=== PATIENT | female | born 1950 | race Caucasian/White ===

== ENCOUNTER 2019-11-21 14:59 | Inpatient (IN) ==
[2019-11-21 16:11] LABS: Basophils % 0.2 % (0.0-0.8); Hematocrit 40.7 VOL% (35.7-47.0); Hemoglobin 13.6 GM/DL (12.0-16.0); Immature Granulocytes % 0.5 %; Immature Granulocytes Absolute 0.03 #; Lymphocytes % 16.9 % (21.3-54.2); Mean Corpuscular HGB Conc 33.4 GM/DL (32-36); Mean Corpuscular Volume 88.5 FL (87-102); Mean Platelet Volume 10.2 FL (9.6-12.0); Monocytes % 3.4 % (1.7-12.7); Platelet Count 169 T/CUMM (130-400); Red Cell Distribution Width 12.4 % (9.3-17.3); White Blood Count 5.6 T/CUMM (4-12)
[2019-11-21 16:26] LABS: Albumin 3.4 G/DL (3.4-5.0); Bilirubin,Total 0.7 MG/DL (0.2-1.0); Calcium 8.7 MG/DL (8.5-10.1); Total Protein 7.2 G/DL (6.4-8.3)
[2019-11-21] MEDS ORDERED: methylPREDNISolone SOD SUC 125 MG/2 ML VIAL IV STA (18:20)
[2019-11-21] MEDS ORDERED: SODIUM CHLORIDE 0.9% 1,000 ML IV STA (18:20)
[2019-11-21] MEDS ORDERED: AZITHROMYCIN INJ 500 MG in SODIUM CHLORIDE 0.9% 250 ML IV STA (18:20)
[2019-11-21 18:59] LABS: Ferritin 580.1 ng/ml (8-252)
[2019-11-21] MEDS ORDERED: DEXTROSE 50% 25 GM/50 ML VIAL IV PRN (20:11)
[2019-11-21] MEDS ORDERED: GLUCAGON 1 MG VIAL IM PRN (20:11)
[2019-11-21] MEDS ORDERED: ONDANSETRON 4 MG/2 ML VIAL IV PRN (20:11)
[2019-11-22] MEDS: INSULIN REGULAR 100 UNIT/ML SUBCUT SCH ×5 (01:18→20:08)
[2019-11-22] MEDS: ALBUTEROL INHALER 18 GM INH SCH ×4 (01:21→18:35)
[2019-11-22] MEDS: DEXAMETHASONE 10 MG/1 ML VIAL IV SCH (08:30)
[2019-11-22] MEDS: ZINC SULFATE 220 MG CAPSULE PO SCH (08:31)
[2019-11-22] MEDS: LETROZOLE 2.5 MG TABLET PO SCH (08:31)
[2019-11-22] MEDS: ASCORBIC ACID 500 MG TABLET PO SCH (08:31)
[2019-11-22] MEDS: ENOXAPARIN 40 MG/0.4 ML SYRINGE SUBCUT SCH (08:31)
[2019-11-22] MEDS: PANTOPRAZOLE 40 MG TABLET PO SCH (08:32)
[2019-11-22 09:08] LABS: Ferritin 605.4 ng/ml (8-252)
[2019-11-22 10:39] LABS: Hematocrit 40.1 VOL% (35.7-47.0); Hemoglobin 13.5 GM/DL (12.0-16.0); Immature Granulocytes % 0.3 %; Immature Granulocytes Absolute 0.01 #; Lymphocytes # 0.6 10*3/uL (1.4-4.0); Lymphocytes % 15.2 % (21.3-54.2); Mean Corpuscular HGB Conc 33.7 GM/DL (32-36); Mean Corpuscular Volume 86.8 FL (87-102); Mean Platelet Volume 10.6 FL (9.6-12.0); Monocytes % 1.7 % (1.7-12.7); Neutrophils % 82.8 % (38.7-73.9); Platelet Count 170 T/CUMM (130-400); Red Blood Count 4.62 MC/CUMM (3.8-5.5); Red Cell Distribution Width 12.5 % (9.3-17.3); White Blood Count 3.6 T/CUMM (4-12)
[2019-11-22 10:49] LABS: Osmolality,Calculated 277.7 MOS/KG (273-304)
[2019-11-22 10:58] LABS: Lymphocytes 8 % (20-55); Platelet Estimate Adequate; Segmented Neutrophils 90 % (50-85); Total Cells Counted 100
[2019-11-22 10:59] LABS: Hypochromasia 1+; Microcytosis Slight
[2019-11-22] MEDS: ACETAMINOPHEN 325 MG TABLET PO PRN (12:15)
[2019-11-22] MEDS ORDERED: SODIUM CHLORIDE 0.9% 500 ML IV ONE (13:03)
[2019-11-22] MEDS: SODIUM CHLORIDE 0.9% 1,000 ML IV SCH (14:26)
[2019-11-22] MEDS: LORazepam 1 MG TABLET PO PRN (20:09)
[2019-11-23] MEDS: SODIUM CHLORIDE 0.9% 1,000 ML IV SCH ×3 (00:33→20:16)
[2019-11-23] MEDS: ALBUTEROL INHALER 18 GM INH SCH ×4 (00:34→19:50)
[2019-11-23 08:48] LABS: Basophils % 0.1 % (0.0-0.8); Hematocrit 39.5 VOL% (35.7-47.0); Hemoglobin 13.2 GM/DL (12.0-16.0); Immature Granulocytes % 0.8 %; Immature Granulocytes Absolute 0.08 #; Lymphocytes % 9.3 % (21.3-54.2); Mean Corpuscular HGB Conc 33.4 GM/DL (32-36); Mean Corpuscular Volume 87.6 FL (87-102); Mean Platelet Volume 10.3 FL (9.6-12.0); Monocytes % 2.5 % (1.7-12.7); Neutrophils % 87.3 % (38.7-73.9); Platelet Count 204 T/CUMM (130-400); Red Blood Count 4.51 MC/CUMM (3.8-5.5); Red Cell Distribution Width 12.5 % (9.3-17.3); White Blood Count 10.3 T/CUMM (4-12)
[2019-11-23] MEDS: INSULIN REGULAR 100 UNIT/ML SUBCUT SCH ×4 (08:58→20:01)
[2019-11-23] MEDS: PANTOPRAZOLE 40 MG TABLET PO SCH (08:59)
[2019-11-23] MEDS: ASCORBIC ACID 500 MG TABLET PO SCH (08:59)
[2019-11-23] MEDS: ENOXAPARIN 40 MG/0.4 ML SYRINGE SUBCUT SCH (08:59)
[2019-11-23] MEDS: LETROZOLE 2.5 MG TABLET PO SCH (08:59)
[2019-11-23] MEDS: DEXAMETHASONE 10 MG/1 ML VIAL IV SCH (09:02)
[2019-11-23 09:14] LABS: Calcium 8.5 MG/DL (8.5-10.1); Osmolality,Calculated 282.1 MOS/KG (273-304)
[2019-11-23] MEDS: ACETAMINOPHEN 325 MG TABLET PO PRN (10:51)
[2019-11-23] MEDS ORDERED: POTASSIUM CHLORIDE 20 MEQ TABLET PO ONE (12:13)
[2019-11-23] MEDS ORDERED: SODIUM CHLORIDE 0.9% 1,000 ML IV PRN (12:17)
[2019-11-23 12:45] LABS: ABG HCO3 25.2 MMOL/L (20-26); ABG Oxygen Saturation 92.1 % (95-100); ABG PCO2 33.2 MM HG (35-48); ABG PH 7.468 (7.35-7.45); ABG PO2 60.7 MM HG (80-95); ABG TCO2 20.9 MMOL/L (23-27)
[2019-11-23] MEDS: AZITHROMYCIN INJ 500 MG in SODIUM CHLORIDE 0.9% 250 ML IV SCH (14:11)
[2019-11-23] MEDS: cefTRIAXone 1,000 MG in SYRINGE 1 EACH IV SCH (14:11)
[2019-11-23 16:27] LABS: Bilirubin,Urine Negative (Negative); Blood, Urine Negative (Negative); Glucose,Urine (UA) 50 mg/dL (Negative); Ketones,Urine Negative (Negative); Mucus,Urine Occasional /LPF (Occasional); Nitrite,Urine Negative (Negative); Protein,Urine Negative; RBC,Urine 1 /HPF (0-4); Urine Appearance CLEAR (Clear); Urine Color Straw (Yellow); Urine Specific Gravity 1.006 (1.001-1.035); Urine Urobilinogen < 2.0 EU/DL (0.2-1.0); WBC,Urine 1 /HPF (0-6)
[2019-11-23] MEDS ORDERED: REMDESIVIR 200 MG in SODIUM CHLORIDE 0.9% 210 ML IV ONE (17:00)
[2019-11-23] MEDS ORDERED: LORazepam 2 MG/1 ML VIAL IV ONE (17:30)
[2019-11-23] MEDS: LORazepam 1 MG TABLET PO PRN (20:15)
[2019-11-24] MEDS: ALBUTEROL INHALER 18 GM INH SCH ×4 (00:22→19:52)
[2019-11-24] MEDS: SODIUM CHLORIDE 0.9% 1,000 ML IV SCH (06:08)
[2019-11-24 06:14] LABS: Hematocrit 37.1 VOL% (35.7-47.0); Hemoglobin 12.5 GM/DL (12.0-16.0); Immature Granulocytes % 0.5 %; Immature Granulocytes Absolute 0.05 #; Lymphocytes # 0.7 10*3/uL (1.4-4.0); Mean Corpuscular HGB Conc 33.7 GM/DL (32-36); Mean Corpuscular Volume 87.3 FL (87-102); Mean Platelet Volume 10.1 FL (9.6-12.0); Monocytes % 3.4 % (1.7-12.7); Neutrophils % 88.1 % (38.7-73.9); Platelet Count 229 T/CUMM (130-400); Red Blood Count 4.25 MC/CUMM (3.8-5.5); Red Cell Distribution Width 12.8 % (9.3-17.3); White Blood Count 9.3 T/CUMM (4-12)
[2019-11-24 06:31] LABS: Calcium 8.2 MG/DL (8.5-10.1); Osmolality,Calculated 285.8 MOS/KG (273-304)
[2019-11-24] MEDS: PANTOPRAZOLE 40 MG TABLET PO SCH (08:57)
[2019-11-24] MEDS: ASCORBIC ACID 500 MG TABLET PO SCH (08:57)
[2019-11-24] MEDS: DEXAMETHASONE 10 MG/1 ML VIAL IV SCH (08:57)
[2019-11-24] MEDS: ENOXAPARIN 40 MG/0.4 ML SYRINGE SUBCUT SCH (08:57)
[2019-11-24] MEDS: LETROZOLE 2.5 MG TABLET PO SCH (08:57)
[2019-11-24] MEDS: ZINC SULFATE 220 MG CAPSULE PO SCH (08:57)
[2019-11-24] MEDS: INSULIN REGULAR 100 UNIT/ML SUBCUT SCH ×4 (08:58→20:03)
[2019-11-24] MEDS: ALPRAZolam 0.5 MG TABLET PO PRN ×2 (10:11→22:21)
[2019-11-24] MEDS: cefTRIAXone 1,000 MG in SYRINGE 1 EACH IV SCH (13:20)
[2019-11-24] MEDS: AZITHROMYCIN INJ 500 MG in SODIUM CHLORIDE 0.9% 250 ML IV SCH (13:21)
[2019-11-24] MEDS: BENZONATATE 100 MG CAPSULE PO PRN (16:52)
[2019-11-24] MEDS: REMDESIVIR 100 MG in SODIUM CHLORIDE 0.9% 230 ML IV SCH (16:52)
[2019-11-25] MEDS: ALBUTEROL INHALER 18 GM INH SCH ×4 (01:15→19:43)
[2019-11-25 06:47] LABS: Basophils % 0.2 % (0.0-0.8); Hematocrit 36.2 VOL% (35.7-47.0); Hemoglobin 12.3 GM/DL (12.0-16.0); Immature Granulocytes % 0.6 %; Immature Granulocytes Absolute 0.04 #; Lymphocytes # 0.9 10*3/uL (1.4-4.0); Lymphocytes % 14.1 % (21.3-54.2); Mean Corpuscular Volume 86.8 FL (87-102); Mean Platelet Volume 10.1 FL (9.6-12.0); Monocytes % 5.6 % (1.7-12.7); Neutrophils % 79.5 % (38.7-73.9); Platelet Count 244 T/CUMM (130-400); Red Blood Count 4.17 MC/CUMM (3.8-5.5); Red Cell Distribution Width 12.6 % (9.3-17.3); White Blood Count 6.2 T/CUMM (4-12)
[2019-11-25] MEDS: INSULIN REGULAR 100 UNIT/ML SUBCUT SCH ×4 (07:19→20:23)
[2019-11-25 07:29] LABS: Hypochromasia 1+; Microcytosis 1+; Platelet Estimate Adequate
[2019-11-25 09:02] LABS: Calcium 8.3 MG/DL (8.5-10.1)
[2019-11-25] MEDS: PANTOPRAZOLE 40 MG TABLET PO SCH (09:50)
[2019-11-25] MEDS: CITALOPRAM 20 MG TABLET PO SCH (09:50)
[2019-11-25] MEDS: ENOXAPARIN 40 MG/0.4 ML SYRINGE SUBCUT SCH (09:50)
[2019-11-25] MEDS: ALPRAZolam 0.5 MG TABLET PO PRN (09:50)
[2019-11-25] MEDS: DEXAMETHASONE 10 MG/1 ML VIAL IV SCH (09:50)
[2019-11-25] MEDS: LETROZOLE 2.5 MG TABLET PO SCH (09:50)
[2019-11-25] MEDS: ASCORBIC ACID 500 MG TABLET PO SCH (09:50)
[2019-11-25] MEDS: cefTRIAXone 1,000 MG in SYRINGE 1 EACH IV SCH (12:05)
[2019-11-25] MEDS: AZITHROMYCIN INJ 500 MG in SODIUM CHLORIDE 0.9% 250 ML IV SCH (12:08)
[2019-11-25] MEDS ORDERED: FUROSEMIDE 20 MG/2 ML VIAL IV ONE (13:03)
[2019-11-25] MEDS: REMDESIVIR 100 MG in SODIUM CHLORIDE 0.9% 230 ML IV SCH (17:07)
[2019-11-26] MEDS: ALBUTEROL INHALER 18 GM INH SCH ×4 (01:09→19:53)
[2019-11-26 05:59] LABS: Basophils % 0.2 % (0.0-0.8); Hematocrit 40.4 VOL% (35.7-47.0); Hemoglobin 13.6 GM/DL (12.0-16.0); Immature Granulocytes % 1.1 %; Immature Granulocytes Absolute 0.06 #; Lymphocytes # 0.7 10*3/uL (1.4-4.0); Lymphocytes % 13.1 % (21.3-54.2); Mean Corpuscular HGB Conc 33.7 GM/DL (32-36); Mean Corpuscular Volume 86.7 FL (87-102); Mean Platelet Volume 10.1 FL (9.6-12.0); Neutrophils % 80.6 % (38.7-73.9); Platelet Count 305 T/CUMM (130-400); Red Blood Count 4.66 MC/CUMM (3.8-5.5); Red Cell Distribution Width 12.2 % (9.3-17.3); White Blood Count 5.6 T/CUMM (4-12)
[2019-11-26 06:06] LABS: Calcium 8.6 MG/DL (8.5-10.1); Osmolality,Calculated 276.7 MOS/KG (273-304)
[2019-11-26 07:09] LABS: Anisocytosis 1+; Band Neutrophils 4 % (0-10); Lymphocytes 11 % (20-55); Metamyelocytes 1 %; Platelet Estimate Normal; Segmented Neutrophils 80 % (50-85); Total Cells Counted 100
[2019-11-26] MEDS: INSULIN REGULAR 100 UNIT/ML SUBCUT SCH ×4 (08:01→22:13)
[2019-11-26] MEDS: DEXAMETHASONE 10 MG/1 ML VIAL IV SCH (09:31)
[2019-11-26] MEDS: ZINC SULFATE 220 MG CAPSULE PO SCH (09:33)
[2019-11-26] MEDS: PANTOPRAZOLE 40 MG TABLET PO SCH (09:33)
[2019-11-26] MEDS: LETROZOLE 2.5 MG TABLET PO SCH (09:33)
[2019-11-26] MEDS: ASCORBIC ACID 500 MG TABLET PO SCH (09:33)
[2019-11-26] MEDS: ENOXAPARIN 40 MG/0.4 ML SYRINGE SUBCUT SCH (09:33)
[2019-11-26] MEDS: CITALOPRAM 20 MG TABLET PO SCH (09:34)
[2019-11-26] MEDS: cefTRIAXone 1,000 MG in SYRINGE 1 EACH IV SCH (13:29)
[2019-11-26] MEDS: AZITHROMYCIN INJ 500 MG in SODIUM CHLORIDE 0.9% 250 ML IV SCH (13:50)
[2019-11-26] MEDS: REMDESIVIR 100 MG in SODIUM CHLORIDE 0.9% 230 ML IV SCH (17:17)
[2019-11-27] MEDS: ALBUTEROL INHALER 18 GM INH SCH ×4 (00:43→18:51)
[2019-11-27] MEDS: ENOXAPARIN 40 MG/0.4 ML SYRINGE SUBCUT SCH (08:36)
[2019-11-27] MEDS: INSULIN REGULAR 100 UNIT/ML SUBCUT SCH ×4 (08:36→21:25)
[2019-11-27] MEDS: LETROZOLE 2.5 MG TABLET PO SCH (08:37)
[2019-11-27] MEDS: CITALOPRAM 20 MG TABLET PO SCH (08:37)
[2019-11-27] MEDS: DEXAMETHASONE 10 MG/1 ML VIAL IV SCH (08:37)
[2019-11-27] MEDS: ASCORBIC ACID 500 MG TABLET PO SCH (08:37)
[2019-11-27] MEDS: PANTOPRAZOLE 40 MG TABLET PO SCH (08:37)
[2019-11-27] MEDS: BENZONATATE 100 MG CAPSULE PO PRN (10:29)
[2019-11-27] MEDS: cefTRIAXone 1,000 MG in SYRINGE 1 EACH IV SCH (13:42)
[2019-11-27] MEDS: AZITHROMYCIN INJ 500 MG in SODIUM CHLORIDE 0.9% 250 ML IV SCH (13:43)
[2019-11-27] MEDS: REMDESIVIR 100 MG in SODIUM CHLORIDE 0.9% 230 ML IV SCH (17:16)
[2019-11-28] MEDS: ALBUTEROL INHALER 18 GM INH SCH ×4 (01:38→19:25)
[2019-11-28 05:55] LABS: Basophils % 0.1 % (0.0-0.8); Hematocrit 40.8 VOL% (35.7-47.0); Hemoglobin 13.6 GM/DL (12.0-16.0); Immature Granulocytes % 0.9 %; Immature Granulocytes Absolute 0.06 #; Lymphocytes # 0.7 10*3/uL (1.4-4.0); Lymphocytes % 10.1 % (21.3-54.2); Mean Corpuscular HGB Conc 33.3 GM/DL (32-36); Mean Corpuscular Volume 86.8 FL (87-102); Mean Platelet Volume 9.9 FL (9.6-12.0); Monocytes % 2.8 % (1.7-12.7); Neutrophils % 86.1 % (38.7-73.9); Platelet Count 333 T/CUMM (130-400); Red Cell Distribution Width 11.9 % (9.3-17.3); White Blood Count 6.8 T/CUMM (4-12)
[2019-11-28 06:38] LABS: Calcium 8.5 MG/DL (8.5-10.1); Ferritin 419.6 ng/ml (8-252); Osmolality,Calculated 277.5 MOS/KG (273-304)
[2019-11-28 08:47] LABS: Albumin 2.4 G/DL (3.4-5.0); Bilirubin,Total 0.7 MG/DL (0.2-1.0); Calcium 8.8 MG/DL (8.5-10.1); Osmolality,Calculated 275.5 MOS/KG (273-304); Total Protein 6.9 G/DL (6.4-8.3)
[2019-11-28] MEDS: INSULIN REGULAR 100 UNIT/ML SUBCUT SCH ×4 (08:51→20:43)
[2019-11-28] MEDS: ASCORBIC ACID 500 MG TABLET PO SCH (08:52)
[2019-11-28] MEDS: ENOXAPARIN 40 MG/0.4 ML SYRINGE SUBCUT SCH ×2 (08:52→20:44)
[2019-11-28] MEDS: PANTOPRAZOLE 40 MG TABLET PO SCH (08:52)
[2019-11-28] MEDS: BENZONATATE 100 MG CAPSULE PO PRN ×2 (08:52→20:44)
[2019-11-28] MEDS: ALPRAZolam 0.5 MG TABLET PO PRN (08:52)
[2019-11-28] MEDS: DEXAMETHASONE 10 MG/1 ML VIAL IV SCH (08:52)
[2019-11-28] MEDS: CITALOPRAM 20 MG TABLET PO SCH (08:53)
[2019-11-28 10:29] LABS: Pt O2 Delivery Device Other
[2019-11-28 10:31] LABS: ABG HCO3 27.7 MMOL/L (20-26); ABG Oxygen Saturation 89.3 % (95-100); ABG PCO2 35.7 MM HG (35-48); ABG PH 7.488 (7.35-7.45); ABG PO2 55.8 MM HG (80-95); ABG TCO2 22.6 MMOL/L (23-27)
[2019-11-28] MEDS: LETROZOLE 2.5 MG TABLET PO SCH (12:16)
[2019-11-28] MEDS: AZITHROMYCIN INJ 500 MG in SODIUM CHLORIDE 0.9% 250 ML IV SCH (12:42)
[2019-11-28] MEDS: cefTRIAXone 1,000 MG in SYRINGE 1 EACH IV SCH (12:42)
[2019-11-28] MEDS ORDERED: FUROSEMIDE 40 MG/4 ML VIAL IV ONE (14:47)
[2019-11-28] MEDS ORDERED: ALUMINUM/MAGNES/SIMETH MAX STR 30 ML UDCUP PO PRN (17:25)
[2019-11-28] MEDS ORDERED: BISACODYL 5 MG TABLET PO PRN (17:25)
[2019-11-28] MEDS ORDERED: SIMETHICONE CHEW 125 MG TABLET PO PRN (17:25)
[2019-11-28] MEDS ORDERED: hydrALAZINE 20 MG/1 ML VIAL IV PRN (17:25)
[2019-11-28] MEDS ORDERED: DOCUSATE SODIUM 100 MG CAPSULE PO PRN (17:25)
[2019-11-28] MEDS ORDERED: LACTULOSE 20 GM/30 ML UDCUP PO PRN (17:25)
[2019-11-28] MEDS ORDERED: diphenhydrAMINE CAP 25 MG CAPSULE PO PRN (17:25)
[2019-11-28] MEDS ORDERED: DEXTROSE 50% 25 GM/50 ML VIAL IV PRN (17:25)
[2019-11-28] MEDS ORDERED: ZOLPIDEM 5 MG TABLET PO SCH (21:00)
[2019-11-28] MEDS ORDERED: ZALEPLON 5 MG CAPSULE PO SCH (21:00)
[2019-11-29] MEDS: ALBUTEROL INHALER 18 GM INH SCH ×4 (00:44→18:40)
[2019-11-29 06:00] LABS: Basophils % 0.3 % (0.0-0.8); Hematocrit 40.6 VOL% (35.7-47.0); Hemoglobin 13.7 GM/DL (12.0-16.0); Immature Granulocytes % 0.7 %; Immature Granulocytes Absolute 0.05 #; Lymphocytes # 0.6 10*3/uL (1.4-4.0); Lymphocytes % 8.4 % (21.3-54.2); Mean Corpuscular HGB Conc 33.7 GM/DL (32-36); Mean Corpuscular Volume 84.2 FL (87-102); Mean Platelet Volume 10.3 FL (9.6-12.0); Monocytes % 3.2 % (1.7-12.7); Neutrophils % 87.4 % (38.7-73.9); Platelet Count 333 T/CUMM (130-400); Red Blood Count 4.82 MC/CUMM (3.8-5.5); White Blood Count 7.1 T/CUMM (4-12)
[2019-11-29 06:24] LABS: Albumin 2.3 G/DL (3.4-5.0); Bilirubin,Total 0.9 MG/DL (0.2-1.0); Calcium 8.8 MG/DL (8.5-10.1); Calcium 8.9 MG/DL (8.5-10.1); Ferritin 425.1 ng/ml (8-252); Osmolality,Calculated 275.8 MOS/KG (273-304); Total Protein 6.8 G/DL (6.4-8.3)
[2019-11-29] MEDS: PANTOPRAZOLE 40 MG TABLET PO SCH (08:36)
[2019-11-29] MEDS: DEXAMETHASONE 4 MG/1 ML VIAL IV SCH (08:36)
[2019-11-29] MEDS: CITALOPRAM 20 MG TABLET PO SCH (08:36)
[2019-11-29] MEDS: BENZONATATE 100 MG CAPSULE PO PRN (08:36)
[2019-11-29] MEDS: LETROZOLE 2.5 MG TABLET PO SCH (08:36)
[2019-11-29] MEDS: CHOLECALCIFEROL 1,000 UNIT TABLET PO SCH (08:36)
[2019-11-29] MEDS: ASCORBIC ACID 500 MG TABLET PO SCH (08:36)
[2019-11-29] MEDS: ENOXAPARIN 40 MG/0.4 ML SYRINGE SUBCUT SCH ×2 (08:37→20:49)
[2019-11-29] MEDS: INSULIN REGULAR 100 UNIT/ML SUBCUT SCH ×4 (08:37→20:16)
[2019-11-29] MEDS ORDERED: MELATONIN 3 MG TABLET PO PRN (09:47)
[2019-11-29] MEDS: REMDESIVIR 100 MG in SODIUM CHLORIDE 0.9% 230 ML IV SCH (13:17)
[2019-11-30] MEDS: ALBUTEROL INHALER 18 GM INH SCH ×4 (00:20→18:00)
[2019-11-30 05:58] LABS: Eosinophils # 0.1 10*3/uL (0.0-0.87); Eosinophils % 0.5 % (0.00-10.9); Hematocrit 37.8 VOL% (35.7-47.0); Hemoglobin 12.7 GM/DL (12.0-16.0); Immature Granulocytes % 0.9 %; Immature Granulocytes Absolute 0.08 #; Lymphocytes # 0.8 10*3/uL (1.4-4.0); Lymphocytes % 9.2 % (21.3-54.2); Mean Corpuscular HGB Conc 33.6 GM/DL (32-36); Mean Corpuscular Volume 85.9 FL (87-102); Mean Platelet Volume 9.8 FL (9.6-12.0); Neutrophils % 86.4 % (38.7-73.9); Platelet Count 333 T/CUMM (130-400); Red Cell Distribution Width 11.9 % (9.3-17.3); White Blood Count 9.1 T/CUMM (4-12)
[2019-11-30 06:18] LABS: Albumin 2.1 G/DL (3.4-5.0); Bilirubin,Total 1.2 MG/DL (0.2-1.0); Calcium 8.5 MG/DL (8.5-10.1); Osmolality,Calculated 272.8 MOS/KG (273-304); Total Protein 6.2 G/DL (6.4-8.3)
[2019-11-30 06:19] LABS: Calcium 8.5 MG/DL (8.5-10.1); Ferritin 398.5 ng/ml (8-252)
[2019-11-30] MEDS: INSULIN REGULAR 100 UNIT/ML SUBCUT SCH ×4 (07:29→21:02)
[2019-11-30] MEDS: DEXAMETHASONE 4 MG/1 ML VIAL IV SCH (09:18)
[2019-11-30] MEDS: CITALOPRAM 20 MG TABLET PO SCH (09:18)
[2019-11-30] MEDS: LETROZOLE 2.5 MG TABLET PO SCH (09:18)
[2019-11-30] MEDS: ENOXAPARIN 40 MG/0.4 ML SYRINGE SUBCUT SCH ×2 (09:18→21:02)
[2019-11-30] MEDS: ASCORBIC ACID 500 MG TABLET PO SCH (09:19)
[2019-11-30] MEDS: PANTOPRAZOLE 40 MG TABLET PO SCH (09:19)
[2019-11-30] MEDS: CHOLECALCIFEROL 1,000 UNIT TABLET PO SCH (09:19)
[2019-11-30] MEDS: REMDESIVIR 100 MG in SODIUM CHLORIDE 0.9% 230 ML IV SCH (10:27)
[2019-11-30] MEDS: BENZONATATE 100 MG CAPSULE PO PRN (11:52)
[2019-12-01] MEDS: ALBUTEROL INHALER 18 GM INH SCH ×4 (01:40→20:27)
[2019-12-01 05:56] LABS: Basophils % 0.1 % (0.0-0.8); Eosinophils # 0.1 10*3/uL (0.0-0.87); Eosinophils % 0.6 % (0.00-10.9); Hematocrit 37.8 VOL% (35.7-47.0); Hemoglobin 12.6 GM/DL (12.0-16.0); Immature Granulocytes % 0.5 %; Immature Granulocytes Absolute 0.05 #; Lymphocytes # 0.5 10*3/uL (1.4-4.0); Lymphocytes % 4.7 % (21.3-54.2); Mean Corpuscular HGB Conc 33.3 GM/DL (32-36); Mean Corpuscular Volume 85.7 FL (87-102); Mean Platelet Volume 10.4 FL (9.6-12.0); Monocytes % 1.9 % (1.7-12.7); Neutrophils % 92.2 % (38.7-73.9); Platelet Count 294 T/CUMM (130-400); Red Blood Count 4.41 MC/CUMM (3.8-5.5); White Blood Count 10.2 T/CUMM (4-12)
[2019-12-01 06:17] LABS: Lymphocytes 4 % (20-55); Platelet Estimate Adequate; Segmented Neutrophils 96 % (50-85); Total Cells Counted 100
[2019-12-01 06:23] LABS: Calcium 8.6 MG/DL (8.5-10.1); Ferritin 442.2 ng/ml (8-252)
[2019-12-01] MEDS: ACETAMINOPHEN 325 MG TABLET PO PRN (06:57)
[2019-12-01 07:24] LABS: Alanine Aminotransferase 11 U/L (13-56); Alkaline Phosphatase 66 U/L (45-117); Aspartate Amino Transferase 15 U/L (0-37); Blood Urea Nitrogen 13 MG/DL (7-18); Calcium 8.6 MG/DL (8.5-10.1); Estimated Glom Filtration Rate 92 ML/MIN; Glucose 142 MG/DL (74-106); Total Protein 6.3 G/DL (6.4-8.3)
[2019-12-01] MEDS: ENOXAPARIN 40 MG/0.4 ML SYRINGE SUBCUT SCH ×2 (08:07→20:27)
[2019-12-01] MEDS: DEXAMETHASONE 4 MG/1 ML VIAL IV SCH ×2 (08:07→09:49)
[2019-12-01] MEDS: INSULIN REGULAR 100 UNIT/ML SUBCUT SCH ×4 (08:07→20:36)
[2019-12-01] MEDS: CITALOPRAM 20 MG TABLET PO SCH (08:07)
[2019-12-01] MEDS: LETROZOLE 2.5 MG TABLET PO SCH (08:07)
[2019-12-01 08:08] VITALS: BP 98/40
[2019-12-01] MEDS: CHOLECALCIFEROL 1,000 UNIT TABLET PO SCH (08:08)
[2019-12-01] MEDS: ASCORBIC ACID 500 MG TABLET PO SCH (08:08)
[2019-12-01] MEDS: PANTOPRAZOLE 40 MG TABLET PO SCH (08:08)
[2019-12-01 09:19] LABS: ABG Base Excess 3.1 MMOL/L (-2.5-2.5); ABG HCO3 27.1 MMOL/L (20-26); ABG PCO2 39.5 MM HG (35-48); ABG PH 7.447 (7.35-7.45); ABG PO2 68.2 MM HG (80-95); ABG TCO2 23.7 MMOL/L (23-27)
[2019-12-01] MEDS: REMDESIVIR 100 MG in SODIUM CHLORIDE 0.9% 230 ML IV SCH (09:49)
[2019-12-01] MEDS: LEVOFLOXACIN INJ 750 MG in PREMIX 1 EACH IV SCH (13:53)
[2019-12-01] MEDS: cefTRIAXone 1,000 MG in SYRINGE 1 EACH IV SCH (15:08)
[2019-12-02] MEDS: ALBUTEROL INHALER 18 GM INH SCH ×4 (01:10→22:20)
[2019-12-02 04:02] LABS: Basophils % 0.2 % (0.0-0.8); Hematocrit 36.7 VOL% (35.7-47.0); Hemoglobin 12.5 GM/DL (12.0-16.0); Immature Granulocytes % 0.5 %; Immature Granulocytes Absolute 0.06 #; Lymphocytes # 0.4 10*3/uL (1.4-4.0); Lymphocytes % 3.3 % (21.3-54.2); Mean Corpuscular HGB Conc 34.1 GM/DL (32-36); Mean Corpuscular Volume 85.2 FL (87-102); Mean Platelet Volume 10.1 FL (9.6-12.0); Monocytes % 2.2 % (1.7-12.7); Neutrophils % 93.8 % (38.7-73.9); Platelet Count 318 T/CUMM (130-400); Red Blood Count 4.31 MC/CUMM (3.8-5.5); Red Cell Distribution Width 12.1 % (9.3-17.3); White Blood Count 12.9 T/CUMM (4-12)
[2019-12-02 04:24] LABS: Segmented Neutrophils 96 % (50-85); Total Cells Counted 100
[2019-12-02 04:25] LABS: Platelet Estimate Normal
[2019-12-02 04:41] LABS: Bilirubin,Total 0.9 MG/DL (0.2-1.0); Calcium 8.5 MG/DL (8.5-10.1); Osmolality,Calculated 273.8 MOS/KG (273-304); Total Protein 5.6 G/DL (6.4-8.3)
[2019-12-02 05:46] LABS: Calcium 8.4 MG/DL (8.5-10.1); Ferritin 508.1 ng/ml (8-252)
[2019-12-02] MEDS: INSULIN REGULAR 100 UNIT/ML SUBCUT SCH ×4 (07:47→21:50)
[2019-12-02] MEDS: ENOXAPARIN 40 MG/0.4 ML SYRINGE SUBCUT SCH ×2 (08:04→21:40)
[2019-12-02] MEDS: CITALOPRAM 20 MG TABLET PO SCH (08:04)
[2019-12-02] MEDS: CHOLECALCIFEROL 1,000 UNIT TABLET PO SCH (08:05)
[2019-12-02] MEDS: DEXAMETHASONE 4 MG/1 ML VIAL IV SCH (08:05)
[2019-12-02] MEDS: LETROZOLE 2.5 MG TABLET PO SCH (08:05)
[2019-12-02] MEDS: PANTOPRAZOLE 40 MG TABLET PO SCH (08:05)
[2019-12-02] MEDS: ASCORBIC ACID 500 MG TABLET PO SCH (08:16)
[2019-12-02] MEDS: REMDESIVIR 100 MG in SODIUM CHLORIDE 0.9% 230 ML IV SCH (09:57)
[2019-12-02] MEDS: LEVOFLOXACIN INJ 750 MG in PREMIX 1 EACH IV SCH (13:10)
[2019-12-02] MEDS: cefTRIAXone 1,000 MG in SYRINGE 1 EACH IV SCH (14:45)
[2019-12-03] MEDS: ALBUTEROL INHALER 18 GM INH SCH ×4 (01:56→21:29)
[2019-12-03 04:42] LABS: Basophils % 0.1 % (0.0-0.8); Hematocrit 37.7 VOL% (35.7-47.0); Hemoglobin 12.7 GM/DL (12.0-16.0); Immature Granulocytes % 0.5 %; Immature Granulocytes Absolute 0.07 #; Lymphocytes # 0.5 10*3/uL (1.4-4.0); Lymphocytes % 3.3 % (21.3-54.2); Mean Corpuscular HGB Conc 33.7 GM/DL (32-36); Mean Corpuscular Volume 86.9 FL (87-102); Mean Platelet Volume 10.6 FL (9.6-12.0); Monocytes % 2.9 % (1.7-12.7); Neutrophils % 93.2 % (38.7-73.9); Platelet Count 315 T/CUMM (130-400); Red Blood Count 4.34 MC/CUMM (3.8-5.5); Red Cell Distribution Width 12.3 % (9.3-17.3); White Blood Count 14.6 T/CUMM (4-12)
[2019-12-03 05:06] LABS: Calcium 8.5 MG/DL (8.5-10.1); Ferritin 438.8 ng/ml (8-252); Osmolality,Calculated 272.8 MOS/KG (273-304)
[2019-12-03 05:18] LABS: Band Neutrophils 1 % (0-10); Lymphocytes 3 % (20-55); Segmented Neutrophils 92 % (50-85); Total Cells Counted 100
[2019-12-03 05:19] LABS: Platelet Estimate Normal
[2019-12-03 05:38] LABS: Albumin 1.9 G/DL (3.4-5.0); Bilirubin,Total 0.7 MG/DL (0.2-1.0); Calcium 8.4 MG/DL (8.5-10.1); Osmolality,Calculated 276.5 MOS/KG (273-304); Total Protein 5.7 G/DL (6.4-8.3)
[2019-12-03] MEDS: CHOLECALCIFEROL 1,000 UNIT TABLET PO SCH (08:26)
[2019-12-03] MEDS: PANTOPRAZOLE 40 MG TABLET PO SCH (08:26)
[2019-12-03] MEDS: ASCORBIC ACID 500 MG TABLET PO SCH (08:26)
[2019-12-03] MEDS: CITALOPRAM 20 MG TABLET PO SCH (08:26)
[2019-12-03] MEDS: ENOXAPARIN 40 MG/0.4 ML SYRINGE SUBCUT SCH ×2 (08:27→20:03)
[2019-12-03] MEDS: INSULIN REGULAR 100 UNIT/ML SUBCUT SCH ×4 (08:27→21:29)
[2019-12-03] MEDS: DEXAMETHASONE 4 MG/1 ML VIAL IV SCH (08:27)
[2019-12-03] MEDS: LETROZOLE 2.5 MG TABLET PO SCH (08:29)
[2019-12-03] MEDS: ACETAMINOPHEN 325 MG TABLET PO PRN (09:14)
[2019-12-03] MEDS: REMDESIVIR 100 MG in SODIUM CHLORIDE 0.9% 230 ML IV SCH (09:30)
[2019-12-03] MEDS: LEVOFLOXACIN INJ 750 MG in PREMIX 1 EACH IV SCH (13:07)
[2019-12-03] MEDS: cefTRIAXone 1,000 MG in SYRINGE 1 EACH IV SCH (15:03)
[2019-12-04 04:04] LABS: Albumin 1.8 G/DL (3.4-5.0); Bilirubin,Total 0.7 MG/DL (0.2-1.0); Calcium 8.2 MG/DL (8.5-10.1); Osmolality,Calculated 271.8 MOS/KG (273-304); Total Protein 6.1 G/DL (6.4-8.3)
[2019-12-04] MEDS: INSULIN REGULAR 100 UNIT/ML SUBCUT SCH ×4 (07:00→20:23)
[2019-12-04] MEDS: PANTOPRAZOLE 40 MG TABLET PO SCH (09:18)
[2019-12-04] MEDS: CHOLECALCIFEROL 1,000 UNIT TABLET PO SCH (09:18)
[2019-12-04] MEDS: ASCORBIC ACID 500 MG TABLET PO SCH (09:18)
[2019-12-04] MEDS: DEXAMETHASONE 4 MG/1 ML VIAL IV SCH (09:18)
[2019-12-04] MEDS: LETROZOLE 2.5 MG TABLET PO SCH (09:18)
[2019-12-04] MEDS: CITALOPRAM 20 MG TABLET PO SCH (09:18)
[2019-12-04] MEDS: ALBUTEROL INHALER 18 GM INH SCH ×4 (09:25→20:23)
[2019-12-04] MEDS: ENOXAPARIN 40 MG/0.4 ML SYRINGE SUBCUT SCH ×2 (10:35→20:23)
[2019-12-04 10:42] LABS: Basophils % 0.1 % (0.0-0.8); Eosinophils % 0.1 % (0.00-10.9); Hematocrit 38.9 VOL% (35.7-47.0); Hemoglobin 13.1 GM/DL (12.0-16.0); Immature Granulocytes % 0.5 %; Immature Granulocytes Absolute 0.08 #; Lymphocytes # 0.4 10*3/uL (1.4-4.0); Lymphocytes % 2.9 % (21.3-54.2); Mean Corpuscular HGB Conc 33.7 GM/DL (32-36); Mean Platelet Volume 9.5 FL (9.6-12.0); Monocytes % 1.6 % (1.7-12.7); Neutrophils % 94.8 % (38.7-73.9); Platelet Count 317 T/CUMM (130-400); Red Blood Count 4.47 MC/CUMM (3.8-5.5); Red Cell Distribution Width 12.2 % (9.3-17.3); White Blood Count 14.8 T/CUMM (4-12)
[2019-12-04 11:18] LABS: Hypochromasia 1+; Lymphocytes 4 % (20-55); Segmented Neutrophils 93 % (50-85); Total Cells Counted 100
[2019-12-04] MEDS: LORazepam 1 MG TABLET PO PRN (11:18)
[2019-12-04 11:19] LABS: Microcytosis Slight
[2019-12-04] MEDS: LEVOFLOXACIN INJ 750 MG in PREMIX 1 EACH IV SCH (13:40)
[2019-12-04] MEDS: cefTRIAXone 1,000 MG in SYRINGE 1 EACH IV SCH (15:19)
[2019-12-05] MEDS: ALBUTEROL INHALER 18 GM INH SCH ×3 (00:23→13:16)
[2019-12-05 04:15] LABS: Basophils % 0.1 % (0.0-0.8); Eosinophils % 0.2 % (0.00-10.9); Hematocrit 37.3 VOL% (35.7-47.0); Hemoglobin 12.6 GM/DL (12.0-16.0); Immature Granulocytes % 0.6 %; Immature Granulocytes Absolute 0.07 #; Lymphocytes # 0.4 10*3/uL (1.4-4.0); Mean Corpuscular HGB Conc 33.8 GM/DL (32-36); Mean Corpuscular Volume 85.2 FL (87-102); Mean Platelet Volume 9.8 FL (9.6-12.0); Monocytes % 2.2 % (1.7-12.7); Neutrophils % 92.9 % (38.7-73.9); Platelet Count 287 T/CUMM (130-400); Red Blood Count 4.38 MC/CUMM (3.8-5.5); Red Cell Distribution Width 12.2 % (9.3-17.3)
[2019-12-05 04:30] LABS: Calcium 8.7 MG/DL (8.5-10.1); Osmolality,Calculated 268.2 MOS/KG (273-304)
[2019-12-05 04:35] LABS: Lymphocytes 2 % (20-55); Segmented Neutrophils 97 % (50-85); Total Cells Counted 100
[2019-12-05 04:36] LABS: ABG Base Excess 5.8 MMOL/L (-2.5-2.5); ABG HCO3 29.5 MMOL/L (20-26); ABG Oxygen Saturation 91.3 % (95-100); ABG PCO2 45.4 MM HG (35-48); ABG PH 7.442 (7.35-7.45); ABG PO2 61.3 MM HG (80-95); ABG TCO2 26.6 MMOL/L (23-27); Allen Test Positive; Pt O2 Delivery Device BIPAP
[2019-12-05 04:36] LABS: Hypochromasia 1+; Microcytosis Slight; Platelet Estimate Adequate
[2019-12-05] MEDS ORDERED: INFLUENZA VIRUS VACCINE 0.5 ML SYRINGE IM ONE (08:00)
[2019-12-05] MEDS: LORazepam 1 MG TABLET PO PRN ×2 (08:29→20:38)
[2019-12-05] MEDS: CHOLECALCIFEROL 1,000 UNIT TABLET PO SCH (09:30)
[2019-12-05] MEDS: DEXAMETHASONE 4 MG/1 ML VIAL IV SCH (09:30)
[2019-12-05] MEDS: PANTOPRAZOLE 40 MG TABLET PO SCH (09:30)
[2019-12-05] MEDS: CITALOPRAM 20 MG TABLET PO SCH (09:30)
[2019-12-05] MEDS: LETROZOLE 2.5 MG TABLET PO SCH (09:30)
[2019-12-05] MEDS: ASCORBIC ACID 500 MG TABLET PO SCH (09:30)
[2019-12-05] MEDS: ENOXAPARIN 40 MG/0.4 ML SYRINGE SUBCUT SCH ×2 (09:30→21:48)
[2019-12-05] MEDS: INSULIN REGULAR 100 UNIT/ML SUBCUT SCH ×4 (10:41→21:47)
[2019-12-05] MEDS: LEVOFLOXACIN INJ 750 MG in PREMIX 1 EACH IV SCH (12:44)
[2019-12-05] MEDS ORDERED: POTASSIUM CHLORIDE 20 MEQ TABLET PO PRN (14:21)
[2019-12-05] MEDS: cefTRIAXone 1,000 MG in SYRINGE 1 EACH IV SCH (14:40)
[2019-12-06] MEDS: LORazepam 1 MG TABLET PO PRN ×2 (00:20→20:15)
[2019-12-06] MEDS: ALBUTEROL INHALER 18 GM INH SCH ×5 (00:43→20:10)
[2019-12-06 03:37] LABS: Basophils % 0.2 % (0.0-0.8); Hematocrit 35.9 VOL% (35.7-47.0); Hemoglobin 11.9 GM/DL (12.0-16.0); Immature Granulocytes % 0.5 %; Immature Granulocytes Absolute 0.06 #; Lymphocytes # 0.4 10*3/uL (1.4-4.0); Lymphocytes % 3.6 % (21.3-54.2); Mean Corpuscular HGB Conc 33.1 GM/DL (32-36); Mean Corpuscular Volume 85.9 FL (87-102); Mean Platelet Volume 9.8 FL (9.6-12.0); Monocytes % 2.8 % (1.7-12.7); Neutrophils % 92.9 % (38.7-73.9); Platelet Count 258 T/CUMM (130-400); Red Blood Count 4.18 MC/CUMM (3.8-5.5); Red Cell Distribution Width 12.2 % (9.3-17.3); White Blood Count 11.7 T/CUMM (4-12)
[2019-12-06 04:02] LABS: Albumin 1.8 G/DL (3.4-5.0); Bilirubin,Total 0.4 MG/DL (0.2-1.0); Calcium 8.7 MG/DL (8.5-10.1); Osmolality,Calculated 270.1 MOS/KG (273-304); Total Protein 6.5 G/DL (6.4-8.3)
[2019-12-06 04:03] LABS: Band Neutrophils 2 % (0-10); Lymphocytes 3 % (20-55); Segmented Neutrophils 94 % (50-85); Total Cells Counted 100
[2019-12-06 04:04] LABS: Hypochromasia 1+; Microcytosis Slight; Platelet Estimate Normal
[2019-12-06 04:33] LABS: Allen Test Positive; Pt O2 Delivery Device BIPAP
[2019-12-06 04:34] LABS: ABG Base Excess 5.1 MMOL/L (-2.5-2.5); ABG HCO3 29.8 MMOL/L (20-26); ABG Oxygen Saturation 91.3 % (95-100); ABG PCO2 44.1 MM HG (35-48); ABG PH 7.447 (7.35-7.45); ABG PO2 63.1 MM HG (80-95); ABG TCO2 31.1 MMOL/L (23-27)
[2019-12-06] MEDS: LETROZOLE 2.5 MG TABLET PO SCH (09:14)
[2019-12-06] MEDS: ENOXAPARIN 40 MG/0.4 ML SYRINGE SUBCUT SCH ×2 (09:14→20:15)
[2019-12-06] MEDS: CHOLECALCIFEROL 1,000 UNIT TABLET PO SCH (09:14)
[2019-12-06] MEDS: CITALOPRAM 20 MG TABLET PO SCH (09:14)
[2019-12-06] MEDS: DEXAMETHASONE 4 MG/1 ML VIAL IV SCH (09:14)
[2019-12-06] MEDS: PANTOPRAZOLE 40 MG TABLET PO SCH (09:14)
[2019-12-06] MEDS: ASCORBIC ACID 500 MG TABLET PO SCH (09:14)
[2019-12-06] MEDS: INSULIN REGULAR 100 UNIT/ML SUBCUT SCH ×4 (10:32→20:15)
[2019-12-06] MEDS: LEVOFLOXACIN INJ 750 MG in PREMIX 1 EACH IV SCH (12:35)
[2019-12-06] MEDS: cefTRIAXone 1,000 MG in SYRINGE 1 EACH IV SCH (14:57)
[2019-12-07 03:56] LABS: Basophils % 0.1 % (0.0-0.8); Hematocrit 35.8 VOL% (35.7-47.0); Hemoglobin 12.2 GM/DL (12.0-16.0); Immature Granulocytes % 0.5 %; Immature Granulocytes Absolute 0.05 #; Lymphocytes # 0.6 10*3/uL (1.4-4.0); Lymphocytes % 5.4 % (21.3-54.2); Mean Corpuscular HGB Conc 34.1 GM/DL (32-36); Mean Corpuscular Volume 84.8 FL (87-102); Monocytes % 2.8 % (1.7-12.7); Neutrophils % 91.2 % (38.7-73.9); Platelet Count 239 T/CUMM (130-400); Red Blood Count 4.22 MC/CUMM (3.8-5.5); Red Cell Distribution Width 12.1 % (9.3-17.3); White Blood Count 10.3 T/CUMM (4-12)
[2019-12-07 04:11] LABS: Calcium 8.7 MG/DL (8.5-10.1); Osmolality,Calculated 268.2 MOS/KG (273-304)
[2019-12-07 04:23] LABS: ABG Base Excess 5.5 MMOL/L (-2.5-2.5); ABG HCO3 29.2 MMOL/L (20-26); ABG Oxygen Saturation 89.5 % (95-100); ABG PCO2 42.7 MM HG (35-48); ABG PH 7.454 (7.35-7.45); ABG PO2 57.5 MM HG (80-95); ABG TCO2 26.5 MMOL/L (23-27); Allen Test Positive; Pt O2 Delivery Device BIPAP
[2019-12-07 04:26] LABS: Lymphocytes 3 % (20-55); Segmented Neutrophils 96 % (50-85); Total Cells Counted 100
[2019-12-07 04:27] LABS: Hypochromasia Slight; Microcytosis Slight; Platelet Estimate Adequate
[2019-12-07] MEDS: ALBUTEROL INHALER 18 GM INH SCH ×3 (06:38→20:36)
[2019-12-07] MEDS: ASCORBIC ACID 500 MG TABLET PO SCH (08:13)
[2019-12-07] MEDS: PANTOPRAZOLE 40 MG TABLET PO SCH (08:13)
[2019-12-07] MEDS: LETROZOLE 2.5 MG TABLET PO SCH (08:13)
[2019-12-07] MEDS: INSULIN REGULAR 100 UNIT/ML SUBCUT SCH ×4 (08:13→20:36)
[2019-12-07] MEDS: DEXAMETHASONE 4 MG/1 ML VIAL IV SCH (08:13)
[2019-12-07] MEDS: CHOLECALCIFEROL 1,000 UNIT TABLET PO SCH (08:13)
[2019-12-07] MEDS: CITALOPRAM 20 MG TABLET PO SCH (08:13)
[2019-12-07] MEDS: ENOXAPARIN 40 MG/0.4 ML SYRINGE SUBCUT SCH ×2 (08:13→20:35)
[2019-12-07] MEDS: cefTRIAXone 1,000 MG in SYRINGE 1 EACH IV SCH (13:14)
[2019-12-07] MEDS: LEVOFLOXACIN INJ 750 MG in PREMIX 1 EACH IV SCH (13:17)
[2019-12-07] MEDS: LORazepam 1 MG TABLET PO PRN (22:57)
[2019-12-08] MEDS: ALBUTEROL INHALER 18 GM INH SCH ×4 (01:03→22:09)
[2019-12-08 04:16] LABS: ABG Base Excess 6.4 MMOL/L (-2.5-2.5); ABG HCO3 29.9 MMOL/L (20-26); ABG Oxygen Saturation 83.8 % (95-100); ABG PCO2 46.4 MM HG (35-48); ABG PO2 50.4 MM HG (80-95); ABG TCO2 27.8 MMOL/L (23-27); Allen Test Positive; Pt O2 Delivery Device BIPAP
[2019-12-08 04:40] LABS: Basophils % 0.1 % (0.0-0.8); Hematocrit 36.9 VOL% (35.7-47.0); Hemoglobin 12.3 GM/DL (12.0-16.0); Immature Granulocytes % 0.4 %; Immature Granulocytes Absolute 0.04 #; Lymphocytes # 0.6 10*3/uL (1.4-4.0); Lymphocytes % 5.8 % (21.3-54.2); Mean Corpuscular HGB Conc 33.3 GM/DL (32-36); Mean Corpuscular Volume 85.2 FL (87-102); Mean Platelet Volume 9.9 FL (9.6-12.0); Monocytes % 2.8 % (1.7-12.7); Neutrophils % 90.9 % (38.7-73.9); Platelet Count 209 T/CUMM (130-400); Red Blood Count 4.33 MC/CUMM (3.8-5.5); Red Cell Distribution Width 12.2 % (9.3-17.3); White Blood Count 9.8 T/CUMM (4-12)
[2019-12-08 05:01] LABS: Hypochromasia 1+; Lymphocytes 3 % (20-55); Microcytosis 1+; Platelet Estimate Adequate; Segmented Neutrophils 94 % (50-85); Total Cells Counted 100
[2019-12-08 05:05] LABS: Calcium 8.7 MG/DL (8.5-10.1); Osmolality,Calculated 267.1 MOS/KG (273-304)
[2019-12-08] MEDS: ENOXAPARIN 40 MG/0.4 ML SYRINGE SUBCUT SCH ×2 (07:55→21:36)
[2019-12-08] MEDS: CITALOPRAM 20 MG TABLET PO SCH (07:55)
[2019-12-08] MEDS: LETROZOLE 2.5 MG TABLET PO SCH (07:55)
[2019-12-08] MEDS: ASCORBIC ACID 500 MG TABLET PO SCH (07:55)
[2019-12-08] MEDS: CHOLECALCIFEROL 1,000 UNIT TABLET PO SCH (07:55)
[2019-12-08] MEDS: PANTOPRAZOLE 40 MG TABLET PO SCH (07:55)
[2019-12-08] MEDS: DEXAMETHASONE 4 MG/1 ML VIAL IV SCH (07:56)
[2019-12-08] MEDS: INSULIN REGULAR 100 UNIT/ML SUBCUT SCH ×4 (08:21→21:36)
[2019-12-08] MEDS: cefTRIAXone 1,000 MG in SYRINGE 1 EACH IV SCH (13:11)
[2019-12-08] MEDS: LEVOFLOXACIN INJ 750 MG in PREMIX 1 EACH IV SCH (13:15)
[2019-12-08] MEDS: LORazepam 1 MG TABLET PO PRN (22:09)
[2019-12-09] MEDS: ALBUTEROL INHALER 18 GM INH SCH ×4 (01:00→20:09)
[2019-12-09 03:27] LABS: ABG Base Excess 7.6 MMOL/L (-2.5-2.5); ABG HCO3 31.2 MMOL/L (20-26); ABG Oxygen Saturation 88.1 % (95-100); ABG PH 7.445 (7.35-7.45); ABG PO2 56.1 MM HG (80-95); ABG TCO2 29.2 MMOL/L (23-27); Allen Test Positive; Pt O2 Delivery Device BIPAP
[2019-12-09 05:03] LABS: Basophils % 0.1 % (0.0-0.8); Hemoglobin 12.6 GM/DL (12.0-16.0); Lymphocytes # 0.5 10*3/uL (1.4-4.0); Lymphocytes % 5.4 % (21.3-54.2); Mean Corpuscular HGB Conc 34.1 GM/DL (32-36); Mean Corpuscular Volume 86.9 FL (87-102); Mean Platelet Volume 9.9 FL (9.6-12.0); Monocytes % 1.8 % (1.7-12.7); Neutrophils % 91.7 % (38.7-73.9); Platelet Count 219 T/CUMM (130-400); Red Blood Count 4.26 MC/CUMM (3.8-5.5); Red Cell Distribution Width 12.2 % (9.3-17.3)
[2019-12-09 05:24] LABS: Calcium 8.7 MG/DL (8.5-10.1)
[2019-12-09 06:00] LABS: Lymphocytes 2 % (20-55); Segmented Neutrophils 96 % (50-85); Total Cells Counted 100
[2019-12-09 06:01] LABS: Hypochromasia 1+; Microcytosis 1+; Platelet Estimate Adequate
[2019-12-09] MEDS: DEXAMETHASONE 4 MG/1 ML VIAL IV SCH (08:56)
[2019-12-09] MEDS: CHOLECALCIFEROL 1,000 UNIT TABLET PO SCH (08:57)
[2019-12-09] MEDS: LETROZOLE 2.5 MG TABLET PO SCH (08:57)
[2019-12-09] MEDS: ENOXAPARIN 40 MG/0.4 ML SYRINGE SUBCUT SCH ×2 (08:57→20:08)
[2019-12-09] MEDS: PANTOPRAZOLE 40 MG TABLET PO SCH (08:58)
[2019-12-09] MEDS: ASCORBIC ACID 500 MG TABLET PO SCH (08:58)
[2019-12-09] MEDS: CITALOPRAM 20 MG TABLET PO SCH (08:58)
[2019-12-09] MEDS: INSULIN REGULAR 100 UNIT/ML SUBCUT SCH ×4 (09:28→20:50)
[2019-12-09] MEDS ORDERED: FUROSEMIDE 40 MG/4 ML VIAL IV ONE (10:44)
[2019-12-09] MEDS ORDERED: SODIUM CHLORIDE 0.9% 500 ML IV ONE (11:46)
[2019-12-09] MEDS: FLUCONAZOLE INJ 200 MG in PREMIX 1 EACH IV SCH (13:20)
[2019-12-09] MEDS: LEVOFLOXACIN INJ 750 MG in PREMIX 1 EACH IV SCH (14:00)
[2019-12-09] MEDS: cefTRIAXone 1,000 MG in SYRINGE 1 EACH IV SCH (14:50)
[2019-12-09] MEDS: LORazepam 1 MG TABLET PO PRN (20:08)
[2019-12-10] MEDS: ALBUTEROL INHALER 18 GM INH SCH ×4 (01:35→18:32)
[2019-12-10 04:28] LABS: Basophils % 0.1 % (0.0-0.8); Eosinophils % 0.2 % (0.00-10.9); Hematocrit 38.4 VOL% (35.7-47.0); Hemoglobin 12.7 GM/DL (12.0-16.0); Immature Granulocytes % 0.6 %; Immature Granulocytes Absolute 0.07 #; Lymphocytes # 0.7 10*3/uL (1.4-4.0); Lymphocytes % 5.7 % (21.3-54.2); Mean Corpuscular HGB Conc 33.1 GM/DL (32-36); Mean Corpuscular Volume 85.3 FL (87-102); Mean Platelet Volume 9.8 FL (9.6-12.0); Monocytes % 2.4 % (1.7-12.7); Platelet Count 214 T/CUMM (130-400); Red Cell Distribution Width 12.3 % (9.3-17.3); White Blood Count 12.2 T/CUMM (4-12)
[2019-12-10 04:46] LABS: Calcium 8.5 MG/DL (8.5-10.1); Osmolality,Calculated 274.8 MOS/KG (273-304)
[2019-12-10 05:00] LABS: ABG HCO3 31.5 MMOL/L (20-26); ABG Oxygen Saturation 87.3 % (95-100); ABG PCO2 46.3 MM HG (35-48); ABG PH 7.462 (7.35-7.45); ABG PO2 54.1 MM HG (80-95); ABG TCO2 28.9 MMOL/L (23-27); Allen Test Positive; Pt O2 Delivery Device BIPAP
[2019-12-10 05:55] LABS: Band Neutrophils 3 % (0-10); Hypochromasia Slight; Lymphocytes 6 % (20-55); Platelet Estimate Normal; Segmented Neutrophils 88 % (50-85); Total Cells Counted 100
[2019-12-10] MEDS: PANTOPRAZOLE 40 MG TABLET PO SCH (08:06)
[2019-12-10] MEDS: LETROZOLE 2.5 MG TABLET PO SCH (08:06)
[2019-12-10] MEDS: CHOLECALCIFEROL 1,000 UNIT TABLET PO SCH (08:06)
[2019-12-10] MEDS: CITALOPRAM 20 MG TABLET PO SCH (08:06)
[2019-12-10] MEDS: DEXAMETHASONE 4 MG/1 ML VIAL IV SCH (08:06)
[2019-12-10] MEDS: ASCORBIC ACID 500 MG TABLET PO SCH (08:06)
[2019-12-10] MEDS: ENOXAPARIN 40 MG/0.4 ML SYRINGE SUBCUT SCH ×2 (08:06→20:37)
[2019-12-10] MEDS: INSULIN REGULAR 100 UNIT/ML SUBCUT SCH ×4 (08:19→20:41)
[2019-12-10] MEDS: FLUCONAZOLE INJ 200 MG in PREMIX 1 EACH IV SCH (12:43)
[2019-12-10] MEDS: LEVOFLOXACIN INJ 750 MG in PREMIX 1 EACH IV SCH (14:42)
[2019-12-10] MEDS: cefTRIAXone 1,000 MG in SYRINGE 1 EACH IV SCH (17:00)
[2019-12-10] MEDS: LORazepam 1 MG TABLET PO PRN (20:37)
[2019-12-11] MEDS: ALBUTEROL INHALER 18 GM INH SCH ×4 (00:21→21:36)
[2019-12-11 03:56] LABS: Basophils % 0.1 % (0.0-0.8); Hematocrit 36.9 VOL% (35.7-47.0); Hemoglobin 12.4 GM/DL (12.0-16.0); Immature Granulocytes % 0.8 %; Immature Granulocytes Absolute 0.09 #; Lymphocytes # 0.6 10*3/uL (1.4-4.0); Lymphocytes % 5.4 % (21.3-54.2); Mean Corpuscular HGB Conc 33.6 GM/DL (32-36); Mean Corpuscular Volume 86.8 FL (87-102); Mean Platelet Volume 9.7 FL (9.6-12.0); Monocytes % 2.5 % (1.7-12.7); Neutrophils % 91.2 % (38.7-73.9); Platelet Count 204 T/CUMM (130-400); Red Blood Count 4.25 MC/CUMM (3.8-5.5); Red Cell Distribution Width 12.3 % (9.3-17.3); White Blood Count 11.1 T/CUMM (4-12)
[2019-12-11 04:18] LABS: Calcium 8.6 MG/DL (8.5-10.1); Osmolality,Calculated 270.1 MOS/KG (273-304)
[2019-12-11 04:45] LABS: Allen Test Positive; Pt O2 Delivery Device BIPAP
[2019-12-11 04:46] LABS: ABG Base Excess 6.6 MMOL/L (-2.5-2.5); ABG HCO3 30.2 MMOL/L (20-26); ABG Oxygen Saturation 90.7 % (95-100); ABG PCO2 49.4 MM HG (35-48); ABG PH 7.423 (7.35-7.45); ABG PO2 61.8 MM HG (80-95); ABG TCO2 28.4 MMOL/L (23-27)
[2019-12-11 07:29] LABS: Hypersegmented Neutrophil Few; Lymphocytes 3 % (20-55); Platelet Estimate Normal; Segmented Neutrophils 96 % (50-85); Total Cells Counted 100
[2019-12-11 07:30] LABS: Hypochromasia Slight; Microcytosis 1+
[2019-12-11 07:31] LABS: Polychromasia Slight
[2019-12-11] MEDS: ASCORBIC ACID 500 MG TABLET PO SCH (08:34)
[2019-12-11] MEDS: CITALOPRAM 20 MG TABLET PO SCH (08:34)
[2019-12-11] MEDS: PANTOPRAZOLE 40 MG TABLET PO SCH (08:34)
[2019-12-11] MEDS: CHOLECALCIFEROL 1,000 UNIT TABLET PO SCH (08:34)
[2019-12-11] MEDS: ENOXAPARIN 40 MG/0.4 ML SYRINGE SUBCUT SCH ×2 (08:35→21:36)
[2019-12-11] MEDS: INSULIN REGULAR 100 UNIT/ML SUBCUT SCH ×4 (08:35→21:57)
[2019-12-11] MEDS: DEXAMETHASONE 4 MG/1 ML VIAL IV SCH (08:35)
[2019-12-11] MEDS: LORazepam 1 MG TABLET PO PRN ×2 (08:35→21:36)
[2019-12-11] MEDS: LETROZOLE 2.5 MG TABLET PO SCH (08:35)
[2019-12-11] MEDS: cefTRIAXone 1,000 MG in SYRINGE 1 EACH IV SCH (15:00)
[2019-12-11] MEDS: LEVOFLOXACIN INJ 750 MG in PREMIX 1 EACH IV SCH (15:00)
[2019-12-11] MEDS: FLUCONAZOLE INJ 200 MG in PREMIX 1 EACH IV SCH (15:00)
[2019-12-12] MEDS: ALBUTEROL INHALER 18 GM INH SCH ×4 (00:29→19:02)
[2019-12-12 05:02] LABS: ABG Base Excess 6.5 MMOL/L (-2.5-2.5); ABG HCO3 32.2 MMOL/L (20-26); ABG Oxygen Saturation 90.5 % (95-100); ABG PCO2 50.5 MM HG (35-48); ABG PH 7.423 (7.35-7.45); ABG PO2 60.6 MM HG (80-95); ABG TCO2 33.8 MMOL/L (23-27); Allen Test Positive; Pt O2 Delivery Device BIPAP
[2019-12-12 05:44] LABS: Basophils % 0.1 % (0.0-0.8); Eosinophils % 0.3 % (0.00-10.9); Hematocrit 39.9 VOL% (35.7-47.0); Hemoglobin 13.3 GM/DL (12.0-16.0); Immature Granulocytes % 0.8 %; Lymphocytes # 0.7 10*3/uL (1.4-4.0); Lymphocytes % 6.1 % (21.3-54.2); Mean Corpuscular HGB Conc 33.3 GM/DL (32-36); Mean Corpuscular Volume 86.2 FL (87-102); Mean Platelet Volume 9.7 FL (9.6-12.0); Monocytes % 3.6 % (1.7-12.7); Neutrophils % 89.1 % (38.7-73.9); Platelet Count 231 T/CUMM (130-400); Red Blood Count 4.63 MC/CUMM (3.8-5.5); Red Cell Distribution Width 12.3 % (9.3-17.3); White Blood Count 11.8 T/CUMM (4-12)
[2019-12-12 06:16] LABS: Calcium 8.6 MG/DL (8.5-10.1); Osmolality,Calculated 268.2 MOS/KG (273-304)
[2019-12-12] MEDS: INSULIN REGULAR 100 UNIT/ML SUBCUT SCH ×4 (08:59→20:09)
[2019-12-12] MEDS: LETROZOLE 2.5 MG TABLET PO SCH (09:13)
[2019-12-12] MEDS: CITALOPRAM 20 MG TABLET PO SCH (09:13)
[2019-12-12] MEDS: ENOXAPARIN 40 MG/0.4 ML SYRINGE SUBCUT SCH ×2 (09:13→20:08)
[2019-12-12] MEDS: CHOLECALCIFEROL 1,000 UNIT TABLET PO SCH (09:13)
[2019-12-12] MEDS: PANTOPRAZOLE 40 MG TABLET PO SCH (09:13)
[2019-12-12] MEDS: ASCORBIC ACID 500 MG TABLET PO SCH (09:13)
[2019-12-12] MEDS: methylPREDNISolone SOD SUC 40 MG/1 ML VIAL IV SCH ×2 (11:12→18:36)
[2019-12-12] MEDS: FLUCONAZOLE INJ 200 MG in PREMIX 1 EACH IV SCH (14:10)
[2019-12-12] MEDS: cefTRIAXone 1,000 MG in SYRINGE 1 EACH IV SCH (14:15)
[2019-12-12] MEDS: LORazepam 1 MG TABLET PO PRN (20:09)
[2019-12-13] MEDS: ALBUTEROL INHALER 18 GM INH SCH ×4 (01:00→18:30)
[2019-12-13] MEDS: methylPREDNISolone SOD SUC 40 MG/1 ML VIAL IV SCH ×3 (02:12→18:30)
[2019-12-13 04:32] LABS: Basophils % 0.1 % (0.0-0.8); Hematocrit 39.2 VOL% (35.7-47.0); Hemoglobin 13.1 GM/DL (12.0-16.0); Immature Granulocytes % 1.1 %; Lymphocytes # 0.4 10*3/uL (1.4-4.0); Lymphocytes % 4.7 % (21.3-54.2); Mean Corpuscular HGB Conc 33.4 GM/DL (32-36); Mean Corpuscular Volume 86.2 FL (87-102); Mean Platelet Volume 9.3 FL (9.6-12.0); Neutrophils % 93.1 % (38.7-73.9); Platelet Count 234 T/CUMM (130-400); Red Blood Count 4.55 MC/CUMM (3.8-5.5); Red Cell Distribution Width 12.3 % (9.3-17.3); White Blood Count 9.4 T/CUMM (4-12)
[2019-12-13 04:55] LABS: ABG Base Excess 5.9 MMOL/L (-2.5-2.5); ABG HCO3 31.9 MMOL/L (20-26); ABG Oxygen Saturation 89.6 % (95-100); ABG PH 7.405 (7.35-7.45); ABG PO2 59.9 MM HG (80-95); ABG TCO2 33.4 MMOL/L (23-27); Allen Test Positive; Pt O2 Delivery Device BIPAP
[2019-12-13 04:56] LABS: Hypochromasia 1+; Lymphocytes 4 % (20-55); Microcytosis 1+; Platelet Estimate Normal; Segmented Neutrophils 95 % (50-85)
[2019-12-13 04:57] LABS: Total Cells Counted 100
[2019-12-13 04:58] LABS: Calcium 8.6 MG/DL (8.5-10.1); Osmolality,Calculated 269.2 MOS/KG (273-304)
[2019-12-13] MEDS: INSULIN REGULAR 100 UNIT/ML SUBCUT SCH ×4 (09:42→21:08)
[2019-12-13] MEDS: ENOXAPARIN 40 MG/0.4 ML SYRINGE SUBCUT SCH ×2 (09:45→21:07)
[2019-12-13] MEDS: CITALOPRAM 20 MG TABLET PO SCH (09:46)
[2019-12-13] MEDS: CHOLECALCIFEROL 1,000 UNIT TABLET PO SCH (09:46)
[2019-12-13] MEDS: LETROZOLE 2.5 MG TABLET PO SCH (09:47)
[2019-12-13] MEDS: PANTOPRAZOLE 40 MG TABLET PO SCH (09:47)
[2019-12-13] MEDS: ASCORBIC ACID 500 MG TABLET PO SCH (13:01)
[2019-12-13] MEDS: FLUCONAZOLE INJ 200 MG in PREMIX 1 EACH IV SCH (13:04)
[2019-12-13] MEDS: cefTRIAXone 1,000 MG in SYRINGE 1 EACH IV SCH (16:04)
[2019-12-13] MEDS: LORazepam 1 MG TABLET PO PRN (21:11)
[2019-12-14] MEDS: methylPREDNISolone SOD SUC 40 MG/1 ML VIAL IV SCH ×3 (02:05→18:25)
[2019-12-14 03:32] LABS: ABG HCO3 30.7 MMOL/L (20-26); ABG Oxygen Saturation 91.6 % (95-100); ABG PCO2 53.5 MM HG (35-48); ABG PH 7.405 (7.35-7.45); ABG PO2 64.2 MM HG (80-95); ABG TCO2 29.4 MMOL/L (23-27); Allen Test Positive; Pt O2 Delivery Device BIPAP
[2019-12-14] MEDS: ALBUTEROL INHALER 18 GM INH SCH ×4 (03:55→19:50)
[2019-12-14 05:09] LABS: Basophils % 0.1 % (0.0-0.8); Hematocrit 37.5 VOL% (35.7-47.0); Hemoglobin 12.8 GM/DL (12.0-16.0); Immature Granulocytes Absolute 0.12 #; Lymphocytes # 0.6 10*3/uL (1.4-4.0); Lymphocytes % 4.6 % (21.3-54.2); Mean Corpuscular HGB Conc 34.1 GM/DL (32-36); Mean Platelet Volume 9.5 FL (9.6-12.0); Monocytes % 3.1 % (1.7-12.7); Neutrophils % 91.2 % (38.7-73.9); Platelet Count 261 T/CUMM (130-400); Red Blood Count 4.36 MC/CUMM (3.8-5.5); Red Cell Distribution Width 12.1 % (9.3-17.3); White Blood Count 12.1 T/CUMM (4-12)
[2019-12-14 05:29] LABS: Calcium 8.4 MG/DL (8.5-10.1); Osmolality,Calculated 273.1 MOS/KG (273-304)
[2019-12-14 05:39] LABS: Hypochromasia 1+; Lymphocytes 3 % (20-55); Microcytosis Slight; Platelet Estimate Adequate; Segmented Neutrophils 93 % (50-85); Total Cells Counted 100
[2019-12-14] MEDS: INSULIN REGULAR 100 UNIT/ML SUBCUT SCH ×4 (07:30→20:03)
[2019-12-14] MEDS: ASCORBIC ACID 500 MG TABLET PO SCH (09:30)
[2019-12-14] MEDS: ENOXAPARIN 40 MG/0.4 ML SYRINGE SUBCUT SCH ×2 (09:30→20:19)
[2019-12-14] MEDS: CHOLECALCIFEROL 1,000 UNIT TABLET PO SCH (09:31)
[2019-12-14] MEDS: LETROZOLE 2.5 MG TABLET PO SCH (09:31)
[2019-12-14] MEDS: CITALOPRAM 20 MG TABLET PO SCH (09:31)
[2019-12-14] MEDS: PANTOPRAZOLE 40 MG TABLET PO SCH (09:32)
[2019-12-14] MEDS: LORazepam 1 MG TABLET PO PRN ×2 (11:21→23:14)
[2019-12-14] MEDS: cefTRIAXone 1,000 MG in SYRINGE 1 EACH IV SCH (13:27)
[2019-12-14] MEDS: FLUCONAZOLE INJ 200 MG in PREMIX 1 EACH IV SCH (13:31)
[2019-12-15] MEDS: methylPREDNISolone SOD SUC 40 MG/1 ML VIAL IV SCH ×3 (01:42→18:25)
[2019-12-15] MEDS: ALBUTEROL INHALER 18 GM INH SCH ×4 (01:42→20:12)
[2019-12-15 03:57] LABS: Basophils % 0.1 % (0.0-0.8); Hemoglobin 13.1 GM/DL (12.0-16.0); Immature Granulocytes % 0.9 %; Immature Granulocytes Absolute 0.13 #; Lymphocytes # 0.6 10*3/uL (1.4-4.0); Mean Corpuscular HGB Conc 32.8 GM/DL (32-36); Mean Corpuscular Volume 87.7 FL (87-102); Mean Platelet Volume 9.4 FL (9.6-12.0); Monocytes % 2.1 % (1.7-12.7); Neutrophils % 92.9 % (38.7-73.9); Platelet Count 308 T/CUMM (130-400); Red Blood Count 4.56 MC/CUMM (3.8-5.5); Red Cell Distribution Width 12.4 % (9.3-17.3); White Blood Count 14.3 T/CUMM (4-12)
[2019-12-15 04:20] LABS: Calcium 8.8 MG/DL (8.5-10.1); Osmolality,Calculated 273.1 MOS/KG (273-304)
[2019-12-15 04:34] LABS: Allen Test Positive; Pt O2 Delivery Device BIPAP
[2019-12-15 04:36] LABS: ABG Base Excess 7.4 MMOL/L (-2.5-2.5); ABG HCO3 33.6 MMOL/L (20-26); ABG Oxygen Saturation 92.8 % (95-100); ABG PCO2 53.2 MM HG (35-48); ABG PH 7.418 (7.35-7.45); ABG PO2 66.9 MM HG (80-95); ABG TCO2 35.2 MMOL/L (23-27)
[2019-12-15 04:50] LABS: Lymphocytes 3 % (20-55); Platelet Estimate Normal; Segmented Neutrophils 96 % (50-85); Total Cells Counted 100
[2019-12-15] MEDS: INSULIN REGULAR 100 UNIT/ML SUBCUT SCH ×4 (09:43→20:27)
[2019-12-15] MEDS: ENOXAPARIN 40 MG/0.4 ML SYRINGE SUBCUT SCH ×2 (09:52→20:11)
[2019-12-15] MEDS: CHOLECALCIFEROL 1,000 UNIT TABLET PO SCH (09:53)
[2019-12-15] MEDS: LETROZOLE 2.5 MG TABLET PO SCH (09:53)
[2019-12-15] MEDS: CITALOPRAM 20 MG TABLET PO SCH (09:53)
[2019-12-15] MEDS: PANTOPRAZOLE 40 MG TABLET PO SCH (09:53)
[2019-12-15] MEDS: ASCORBIC ACID 500 MG TABLET PO SCH (10:15)
[2019-12-15] MEDS ORDERED: INFLUENZA VIRUS VACCINE 0.5 ML SYRINGE IM ONE (12:00)
[2019-12-15] MEDS: LORazepam 1 MG TABLET PO PRN (20:10)
[2019-12-16] MEDS: ALBUTEROL INHALER 18 GM INH SCH ×3 (02:35→12:42)
[2019-12-16] MEDS: methylPREDNISolone SOD SUC 40 MG/1 ML VIAL IV SCH ×2 (02:38→10:35)
[2019-12-16 04:55] LABS: Basophils % 0.2 % (0.0-0.8); Eosinophils # 0.1 10*3/uL (0.0-0.87); Eosinophils % 0.6 % (0.00-10.9); Hematocrit 39.9 VOL% (35.7-47.0); Hemoglobin 12.9 GM/DL (12.0-16.0); Immature Granulocytes Absolute 0.13 #; Lymphocytes # 1.2 10*3/uL (1.4-4.0); Lymphocytes % 9.6 % (21.3-54.2); Mean Corpuscular HGB Conc 32.3 GM/DL (32-36); Mean Corpuscular Volume 89.7 FL (87-102); Mean Platelet Volume 9.3 FL (9.6-12.0); Monocytes % 4.3 % (1.7-12.7); Neutrophils % 84.3 % (38.7-73.9); Platelet Count 332 T/CUMM (130-400); Red Blood Count 4.45 MC/CUMM (3.8-5.5); Red Cell Distribution Width 12.5 % (9.3-17.3); White Blood Count 12.4 T/CUMM (4-12)
[2019-12-16 05:18] LABS: Calcium 8.6 MG/DL (8.5-10.1); Osmolality,Calculated 276.7 MOS/KG (273-304)
[2019-12-16] MEDS: INSULIN REGULAR 100 UNIT/ML SUBCUT SCH ×2 (08:45→12:42)
[2019-12-16] MEDS: CITALOPRAM 20 MG TABLET PO SCH (08:57)
[2019-12-16] MEDS: LETROZOLE 2.5 MG TABLET PO SCH (08:57)
[2019-12-16] MEDS: ENOXAPARIN 40 MG/0.4 ML SYRINGE SUBCUT SCH (08:57)
[2019-12-16] MEDS: PANTOPRAZOLE 40 MG TABLET PO SCH (08:57)
[2019-12-16] MEDS: ASCORBIC ACID 500 MG TABLET PO SCH (08:57)
[2019-12-16] MEDS: CHOLECALCIFEROL 1,000 UNIT TABLET PO SCH (08:57)
[2019-12-16] MEDS: LORazepam 1 MG TABLET PO PRN (15:03)
== END 2019-12-16 14:45 | DRG 177 ==
LOC: N.ED 14:59 → N.2E 14:59 → SUATTDRO 11-23 12:34 → N.CC 12-01 11:03
PROVIDERS: ADMIT Family Medicine; ATTEND Internal Medicine